=== PATIENT | female | born 1950 | race Caucasian/White ===

== ENCOUNTER 2024-03-23 07:31 | Outpatient (CLI) | payer MEDICARE | END 2024-03-23 07:32 | disposition home or self-care (01) | LOC: CSHMRI 07:31 | PROVIDERS: ATTEND Nurse Practitioner Family | DX: M47.26 Other spondylosis with radiculopathy, lumbar region (principal); N94.9 Unspecified condition associated with female genital organs and menstrual cycle | CPT/HCPCS: 72148 ==

== ENCOUNTER 2024-04-04 08:06 | Outpatient (CLI) | payer MEDICARE | END 2024-04-04 08:07 | disposition home or self-care (01) | LOC: CSHMRI 08:06 | PROVIDERS: ATTEND Nurse Practitioner Family | DX: M47.22 Other spondylosis with radiculopathy, cervical region (principal); M48.02 Spinal stenosis, cervical region; M48.03 Spinal stenosis, cervicothoracic region | CPT/HCPCS: 72141 ==